=== PATIENT | male | born 1930 | race Caucasian/White ===

== ENCOUNTER 2017-01-20 12:02 | Emergency (ER) | payer OTHER ==
--- NOTE | 2017-01-20 12:48 | EDPHY ---
H & P Stated Complaint: Home nurse concerned with low heart rate. BP was stable. Time Seen by Provider: 01/20/17 12:38 HPI/ROS: CHIEF COMPLAINT: Hypotension HISTORY OF PRESENT ILLNESS: The patient is an 86-year-old man who comes to the emergency department referred by his home health nurse. He states that his home health nurse came to refill his medications today and took his blood pressure and noticed that the systolic reading was 60 mm of mercury. She told him to come to the hospital. He states that he has been asymptomatic. He denies lightheadedness or dizziness. He denies chest pain or shortness of breath. He denies nausea, vomiting, abdominal pain, diarrhea diaphoresis. He thinks that her blood pressure instrument was faulty. REVIEW OF SYSTEMS: Constitutional: denies: chills, fever, recent illness, recent injury EENTM: denies: blurred vision, double vision, nose congestion Respiratory: denies: cough, shortness of breath Cardiac: denies: chest pain, irregular heart rate, lightheadedness, palpitations Gastrointestinal/Abdominal: denies: abdominal pain, diarrhea, nausea, vomiting, blood streaked stools Genitourinary: denies: dysuria, frequency, hematuria, pain Musculoskeletal: denies: joint pain, muscle pain Skin: denies: lesions, rash, jaundice, bruising Neurological: denies: headache, numbness, paresthesia, tingling, dizziness, weakness Hematologic/Lymphatic: denies: blood clots, easy bleeding, easy bruising Immunologic/allergic: denies: HIV/AIDS, transplant EXAM: GENERAL: Well-appearing, well-nourished and in no acute distress. HEAD: Atraumatic, normocephalic. EYES: Pupils equal round and reactive to light, extraocular movements intact, sclera anicteric, conjunctiva are normal. ENT: TMs normal, nares patent, oropharynx clear without exudates. Moist mucous membranes. NECK: Normal range of motion, supple without lymphadenopathy or JVD. LUNGS: Breath sounds clear to auscultation bilaterally and equal. No wheezes rales or rhonchi. HEART: Regular rate and rhythm without murmurs, rubs or gallops. ABDOMEN: Soft, nontender, normoactive bowel sounds. No guarding, no rebound. No masses appreciated. BACK: No CVA tenderness, no spinal tenderness, step-offs or deformities EXTREMITIES: Normal range of motion, no pitting or edema. No clubbing or cyanosis. NEUROLOGICAL: Cranial nerves II through XII grossly intact. Normal speech, normal gait. 5/5 strength, normal movement in all extremities, normal sensation PSYCH: Normal mood, normal affect. SKIN: Warm, dry, normal turgor, no visible rashes or lesions. Source: Patient Exam Limitations: No limitations - Personal History Current Tetanus/Diphtheria Vaccine: Unsure Current Tetanus Diphtheria and Acellular Pertussis (TDAP): Unsure Tetanus Vaccine Date: DONE AT [facility] - Medical/Surgical History Hx Asthma: No Hx Chronic Respiratory Disease: No Hx Diabetes: No Hx Cardiac Disease: No Hx Renal Disease: No Hx Cirrhosis: No Hx Alcoholism: No Hx HIV/AIDS: No Hx Splenectomy or Spleen Trauma: No Other PMH: PMH- HYPOTHYROID, DEPRESSION, AGDAAGUX, LABILE BPH, ARTHRITIS, GLAUCOMA - Family History Significant Family History: No pertinent family hx - Social History Smoking Status: Light smoker Alcohol Use: Sober Drug Use: None Constitutional: Initial Vital Signs Temperature (C) 36.6 C 01/20/17 12:31 Heart Rate 59 L 01/20/17 12:31 Respiratory Rate 18 01/20/17 12:31 Blood Pressure 134/77 H 01/20/17 12:31 O2 Sat (%) 96 01/20/17 12:31 O2 Delivery Mode Room Air Allergies/Adverse Reactions: mold Allergy (Verified 01/20/17 12:34) Yeast Allergy (Verified 01/20/17 12:34) yeast, dried [yeast] Allergy (Verified 01/20/17 12:34) Home Medications: Medication Instructions Recorded Acetaminophen [Tylenol ES 500 mg 1,000 mg PO TID 10/06/15 (*)] Cholecalciferol Vit D3 [Vitamin D3 1,000 units PO DAILY 10/06/15 (*)] Cyanocobalamin [Vitamin B12 (*)] 1,000 mcg PO DAILY 10/06/15 Fluocinonide 0.05% [Lidex 0.05% 1 ines TP BID 10/06/15 Cream] Latanoprost 0.005% [Xalatan 0.005% 1 drops EACHEYE HS 10/06/15 (*)] Levothyroxine [Synthroid 25 mcg 100 mcg PO DAILY06 #31 tab 10/06/15 (*)] Lidocaine HCl [Lidocaine HCl 4% 1 ines TP DAILY 10/06/15 Topical Soln (*)] Lisinopril [Zestril 10 mg (*)] 10 mg PO BID 10/06/15 Naproxen 250 mg PO TID PRN 10/06/15 Sertraline HCl [Zoloft 100mg (*)] 100 mg PO DAILY 10/06/15 Tretinoin/Emol Cmb9/Skin Cln1 1 ines TP Q48H 10/06/15 [Tretin-X 0.025% Cream Comb Pck] Vanicream [Vanicream (*)] 1 ines TP BID 10/06/15 Aleve 08/26/16 Cyanocobalamin 08/26/16 Latanoprost 08/26/16 Levothyroxine 08/26/16 Nugenix 08/26/16 Sertraline HCl 08/26/16 Sildenafil Citrate 08/26/16 Triamterene 08/26/16 Medical Decision Making - Diagnostics EKG Interpretation: An EKG obtained and was read and documented in trace view. Please see trace view for full reading and report. ED Course/Re-evaluation: Patient is asymptomatic and has had stable vital signs since arriving here to the emergency department. I agree with him that the sphygmomanometer was likely faulty. I did not recommend any medication changes. He declines any workup. We will obtain an EKG. Differential Diagnosis: Partial list of the Differential diagnosis considered include but were not limited to; hypotension, anxiety, and although unlikely based on the history and physical exam, I also considered acute coronary disease, arrhythmia, infection, dissection, aneurysm. I discussed these differential diagnoses and the plan with the patient as well as the usual and expected course. The patient understands that the diagnosis is provisional and that in medicine we are not always correct and that further workup is often warranted. Usual and customary warnings were given. All of the patient's questions were answered. The patient was instructed to return to the emergency department should the symptoms at all worsen or return, otherwise to followup with the physician as we discussed. Departure - Departure Disposition: Home, Routine, Self-Care Clinical Impression: Blood pressure check Condition: Fair Instructions: How to Take a Blood Pressure (ED) Referrals: UNKNOWN,DOCTOR [Other] - As per Instructions Grant Feng MD [Medical Doctor] - As per Instructions
--- NOTE | 2017-01-20 12:49 | CPEKG ---
Heart Rate: 65 RR Interval: 923 P-R Interval: 252 QRSD Interval: 70 QT Interval: 404 QTC Interval: 421 P [place]: 8 QRS [place]: 20 T Wave [place]: 50 EKG Severity - ABNORMAL ECG - EKG Impression: SINUS RHYTHM EKG Impression: ATRIAL PREMATURE COMPLEX EKG Impression: FIRST DEGREE AV BLOCK EKG Impression: CONSIDER ANTEROSEPTAL INFARCT Electronically Signed By: Ra Domingo 20-Jan-2017 12:50:04
[2017-01-20 13:01] VITALS: BP 138/83; PULSE 64; RESP 16; TEMP 97.3; O2SAT 94
== END 2017-01-20 13:09 | disposition home or self-care (01) ==
DX: Z01.30 Encounter for examination of blood pressure without abnormal findings (principal); F17.200 Nicotine dependence, unspecified, uncomplicated

== ENCOUNTER 2017-03-19 15:26 | Inpatient (IN) | payer OTHER ==
--- NOTE | 2017-03-19 15:24 | EDPHY ---
H & P Constitutional: Initial Vital Signs Temperature (C) 37.0 C 03/19/17 15:37 Heart Rate 104 H 03/19/17 15:37 Respiratory Rate 18 03/19/17 15:37 Blood Pressure 200/113 H 03/19/17 15:37 O2 Sat (%) 93 03/19/17 15:37 O2 Delivery Mode Nasal Cannula O2 (L/minute) 2 Allergies/Adverse Reactions: mold Allergy (Verified 01/20/17 12:34) Yeast Allergy (Verified 01/20/17 12:34) yeast, dried [yeast] Allergy (Verified 01/20/17 12:34) Home Medications: Medication Instructions Recorded Acetaminophen [Tylenol ES 500 mg 1,000 mg PO TID 10/06/15 (*)] Cholecalciferol Vit D3 [Vitamin D3 1,000 units PO DAILY 10/06/15 (*)] Cyanocobalamin [Vitamin B12 (*)] 1,000 mcg PO DAILY 10/06/15 Fluocinonide 0.05% [Lidex 0.05% 1 ines TP BID 10/06/15 Cream] Latanoprost 0.005% [Xalatan 0.005% 1 drops EACHEYE HS 10/06/15 (*)] Levothyroxine [Synthroid 25 mcg 100 mcg PO DAILY06 #31 tab 10/06/15 (*)] Lidocaine HCl [Lidocaine HCl 4% 1 ines TP DAILY 10/06/15 Topical Soln (*)] Lisinopril [Zestril 10 mg (*)] 10 mg PO BID 10/06/15 Naproxen 250 mg PO TID PRN 10/06/15 Sertraline HCl [Zoloft 100mg (*)] 100 mg PO DAILY 10/06/15 Tretinoin/Emol Cmb9/Skin Cln1 1 ines TP Q48H 10/06/15 [Tretin-X 0.025% Cream Comb Pck] Vanicream [Vanicream (*)] 1 ines TP BID 10/06/15 Aleve 08/26/16 Cyanocobalamin 08/26/16 Latanoprost 08/26/16 Levothyroxine 08/26/16 Nugenix 08/26/16 Sertraline HCl 08/26/16 Sildenafil Citrate 08/26/16 Triamterene 08/26/16 Medical Decision Making - Diagnostics Imaging Results: Imaging Impressions Head CTA 03/19/17 16:29 Impression: Negative CT angiogram of the brain. Results called and discussed with Paul Godwin MD at 03/19/2017 17:10. Imaging: Discussed imaging studies w/ [employer] architect Radiologist ED Course/Re-evaluation: CHIEF COMPLAINT: Possible seizure HISTORY OF PRESENT ILLNESS: This patient is a non-anticoagulated 86 year old male arriving via EMS following a witnessed possible seizure onset 30 minutes ago, around 15:00. Per EMS report, the patient was sitting with friends outside when he began to have tonic-clonic type movements for about thirty seconds. Upon arrival, crews state he seemed to be post-ictal, with frothy secretions around his mouth, alert and oriented x 1. Vitals in transport were BP 200/113, HR 104, SpO2 93%. REVIEW OF SYSTEMS: A 10 point review of systems was performed and is negative with the exception of the elements mentioned in the history of present illness. PHYSICAL EXAM: Aortic stenosis murmur. systolic injection murmur HR, BP, O2 Sat, RR. Temp noted General Appearance: Alert, well hydrated, appropriate, and non-toxic appearing. Head: Atraumatic without scalp tenderness or obvious injury Eyes: Pupils equal, round, reactive to light and accommodation, EOMI, no trauma , no injection. Ears: Clear bilaterally, no perforation, normal landmarks Nose: Atraumatic, no rhinorrhea, clear. Throat: There is no erythema or exudates, no lesions, normal tonsils, mucus membranes moist. Neck: Supple, 2+ carotid upstroke, nontender, no lymphadenopathy. Respiratory: No retractions, no distress, no wheezes, and no accessory muscle use. Lungs are clear to auscultation bilaterally. Cardiovascular: Aortic murmur. Regular rate and rhythm, rubs, or gallops. Bilateral carotid, radial, dorsalis pedis, and posterior tibial pulses intact. Good capillary refill all extremities. Gastrointestinal: Abdomen is soft, nontender, non-distended, no masses, no rebound, no guarding, no peritoneal signs. Musculoskeletal: Normal active ROM of all extremities, atraumatic. Neurological: Alert, appropriate, and interactive. The patient has normal DTRs and non-focal cranial nerves, motor, sensory, and cerebellar exam. Skin: No rashes, good turgor, no nodules on palpation. Past medical/surgical history: Hypothyroid, depression, BPH, arthritis, glaucoma Family history: Noncontributory Social history: Lives at [facility]. DIAGNOSTICS/PROCEDURES/CRITICAL CARE TIME: Critical care time spent by me, Dr. Godwin, exclusively with this patient was [ ] minutes, exclusive of PA time and exclusive of procedures. The organ system at risk was [] and I [] to prevent worsening of the patients condition. DIFFERENTIAL DIAGNOSIS: The differential diagnosis for the patient's syncope included but was not limited to vasovagal syncope, arrhythmia, dehydration, cardiogenic causes, neurogenic causes, and blood loss. The differential diagnosis for the patient's seizure included but was not limited to electrolyte abnormality, alcohol withdrawal, medication noncompliance , head injury, [employer] structural abnormality, and break through seizure. MEDICAL DECISION MAKIN:28 Met EMS at bedside. Does not appear to be infectious of febrile. Sepsis / meningitis criteria not met. Plan for CT head with and without contrast to evaluate for acute processes. 15:48 Patient has developed left sided facial droop, slurred speech. Called stroke alert. 16:24 Bleed in left frontal lobe, subarachnoid. Patient denies fall. Non anticoagulated. Plan to administer 1gm IV Keppra 16:25 Telemedicine conference with [facility]. []. 16:[address] Fan, neurosurgeon. Plan for CTA head. Patient continues to be hypertensive, plan for labetalol 17:[address] Schumacher, radiologist. CTA negative. 17:[address] Fan, neurosurgeon. Plan to admit to ICU. Dr. Fan will consult. She recommends consult with neurology as well. 17:[address] Malone, hospitalist. Accepts admission for continued management of seizure, stroke, intracranial hemorrhage. Reassessed patient. Continues to mentate well. No peripheral deficits. - Data Points Laboratory Results: Laboratory Results 03/19/17 15:30 03/19/17 15:30 03/19/17 03/19/17 03/19/17 16:25 15:32 15:30 WBC RBC Hgb POC Hgb 17.0 gm/dL gm/dL (13.7-17.5) Hct POC Hct 50 % % (40-51) MCV MCH MCHC RDW Plt Count MPV Neut % (Auto) Lymph % (Auto) Bennett % (Auto) Eos % (Auto) Baso % (Auto) Nucleat RBC Rel Count Absolute Neuts (auto) Absolute Lymphs (auto) Absolute Monos (auto) Absolute Eos (auto) Absolute Basos (auto) Absolute Nucleated RBC Immature Gran % Immature Gran # PT 14.1 SEC SEC (12.0-15.0) INR 1.10 (0.83-1.16) APTT 28.6 SEC SEC (23.0-38.0) POC Sodium 144 mEq/L mEq/L (134-144) Sodium 147 mEq/L H mEq/L (134-144) POC Potassium 3.4 mEq/L mEq/L (3.3-5.0) Potassium 3.6 mEq/L mEq/L (3.5-5.2) POC Chloride 103 mEq/L mEq/L (97-110) Chloride 107 mEq/L mEq/L (97-110) Carbon Dioxide 13 mEq/l L mEq/l (22-31) Anion Gap 27 mEq/L H mEq/L (8-16) POC BUN 8 mg/dL mg/dL (7-23) BUN 9 mg/dL mg/dL (7-23) Creatinine 0.9 mg/dL mg/dL (0.7-1.3) POC Creatinine 0.6 mg/dL L mg/dL (0.7-1.3) Estimated GFR > 60 Glucose 176 mg/dL H mg/dL (70-100) POC Glucose 170 mg/dL H mg/dL (70-100) Calcium 9.3 mg/dL mg/dL (8.5-10.4) Troponin I < 0.012 ng/mL ng/mL (0-0.034) 03/19/17 15:30 WBC 9.77 10^3/uL H 10^3/uL (3.80-9.50) RBC 4.37 10^6/uL L 10^6/uL (4.40-6.38) Hgb 15.8 g/dL g/dL (13.7-17.5) POC Hgb Hct 46.4 % % (40.0-51.0) POC Hct MCV 106.2 fL H fL (81.5-99.8) MCH 36.2 pg H pg (27.9-34.1) MCHC 34.1 g/dL g/dL (32.4-36.7) RDW 12.2 % % (11.5-15.2) Plt Count 162 10^3/uL 10^3/uL (150-400) MPV 10.4 fL fL (8.7-11.7) Neut % (Auto) 74.4 % H % (39.3-74.2) Lymph % (Auto) 17.8 % % (15.0-45.0) Bennett % (Auto) 5.5 % % (4.5-13.0) Eos % (Auto) 0.0 % L % (0.6-7.6) Baso % (Auto) 0.2 % L % (0.3-1.7) Nucleat RBC Rel Count 0.0 % % (0.0-0.2) Absolute Neuts (auto) 7.26 10^3/uL H 10^3/uL (1.70-6.50) Absolute Lymphs (auto) 1.74 10^3/uL 10^3/uL (1.00-3.00) Absolute Monos (auto) 0.54 10^3/uL 10^3/uL (0.30-0.80) Absolute Eos (auto) 0.00 10^3/uL L 10^3/uL (0.03-0.40) Absolute Basos (auto) 0.02 10^3/uL 10^3/uL (0.02-0.10) Absolute Nucleated RBC 0.00 10^3/uL 10^3/uL (0-0.01) Immature Gran % 2.1 % H % (0.0-1.1) Immature Gran # 0.21 10^3/uL H 10^3/uL (0.00-0.10) PT INR APTT POC Sodium Sodium POC Potassium Potassium POC Chloride Chloride Carbon Dioxide Anion Gap POC BUN BUN Creatinine POC Creatinine Estimated GFR Glucose POC Glucose Calcium Troponin I Medications Given: Discontinued Medications Levetiracetam 1,000 mg/ Sodium (Chloride) 110 mls @ 440 mls/hr IV EDNOW ONE Stop: 03/19/17 16:38 Last Admin: 03/19/17 16:55 Dose: 110 mls Labetalol HCl (Labetalol Hcl) 20 mg IVP EDNOW ONE Stop: 03/19/17 16:37 Last Admin: 03/19/17 16:38 Dose: 20 mg Labetalol HCl (Labetalol Hcl) 20 mg IVP EDNOW ONE Stop: 03/19/17 17:02 Last Admin: 03/19/17 17:08 Dose: 20 mg Point of Care Test Results: 03/19/17 15:32 POC Sodium 144 POC Potassium 3.4 POC Chloride 103 POC BUN 8 POC Creatinine 0.6 L POC Glucose 170 H Departure - Departure Disposition: [facility] Inpatient Acute Clinical Impression: Seizure, Intracranial hemorrhage Stroke Qualifiers: CVA mechanism: other Qualified Code(s): I63.8 - Other cerebral infarction Condition: Fair Referrals: Patient,NotPresent [Primary Care Provider] - As per Instructions Report Scribed for: Paul Godwin Report Scribed by: Loulou Ribeiro Date of Report: 03/19/17 Time of Report: 17:03
--- NOTE | 2017-03-19 15:40 | CPEKG ---
Heart Rate: 96 RR Interval: 625 P-R Interval: 264 QRSD Interval: 68 QT Interval: 352 QTC Interval: 445 P [place]: 7 QRS [place]: 8 T Wave [place]: 0 EKG Severity - ABNORMAL ECG - EKG Impression: SINUS RHYTHM EKG Impression: FIRST DEGREE AV BLOCK EKG Impression: BORDERLINE T WAVE ABNORMALITIES Electronically Signed By: Paul Godwin 19-Mar-2017 20:57:19
[2017-03-19 15:51] LABS: % IMMATURE GRANULYOCYTES 2.1 % (0.0-1.1); ABSOLUTE IMMATURE GRANULOCYTES 0.21 10^3/uL (0.00-0.10); ADD DIFF? NO; ADD MORPH? NO; ADD SCAN? NO; ATYPICAL LYMPHOCYTE FLAG 0 (0-99); FRAGMENT RBC FLAG 0 (0-99); HEMATOCRIT 46.4 % (40.0-51.0); HEMOGLOBIN 15.8 g/dL (13.7-17.5); LEFT SHIFT FLG 10 (0-99); LIPEMIA HEMOLYSIS FLAG 90 (0-99); MEAN CELL HEMOGLOBIN 36.2 pg (27.9-34.1); MEAN CELL HEMOGLOBIN CONCENTR. 34.1 g/dL (32.4-36.7); MEAN CELL VOLUME 106.2 fL (81.5-99.8); MEAN PLATELET VOLUME 10.4 fL (8.7-11.7); PLATELET CLUMPS FLAG 0 (0-99); PLATELET COUNT 162 10^3/uL (150-400); RED BLOOD CELL COUNT 4.37 10^6/uL (4.40-6.38); RED CELL DISTRIBUTION WIDTH 12.2 % (11.5-15.2)
[2017-03-19 16:04] LABS: ANION GAP 27 mEq/L (8-16); CALCIUM 9.3 mg/dL (8.5-10.4); CARBON DIOXIDE 13 mEq/l (22-31); CHLORIDE 107 mEq/L (97-110); CREATININE 0.9 mg/dL (0.7-1.3); GLOMERULAR FILTRATION RATE > 60; GLUCOSE 176 mg/dL (70-100); POTASSIUM 3.6 mEq/L (3.5-5.2); SODIUM 147 mEq/L (134-144)
[2017-03-19 16:15] LABS: TROPONIN I < 0.012 ng/mL (0-0.034)
[2017-03-19] MEDS ORDERED: levETIRAcetam 1,000 MG in NS 100 ML IV ONE (16:24)
[2017-03-19] MEDS ORDERED: LABETALOL HCL 5 MG/ML 20 ML MDV ONE (16:30)
[2017-03-19] MEDS ORDERED: IOPAMIDOL (ISOVUE 370) 100 ML BTL IV ONE (16:31)
[2017-03-19] MEDS ORDERED: LABETALOL HCL 50 MG/10 ML SYR IVP ONE ×2 (16:36→17:01)
[2017-03-19 16:59] LABS: INR 1.1 (0.83-1.16); PROTIME(PATIENT) 14.1 SEC (12.0-15.0)
[2017-03-19 17:06] LABS: APTT 28.6 SEC (23.0-38.0)
--- NOTE | 2017-03-19 19:30 | GHP ---
[f rep st] HISTORY AND PHYSICAL DATE OF ADMISSION: 03/19/2017 CHIEF COMPLAINT: Suspected seizure. HISTORY OF PRESENT ILLNESS: This is an 86-year-old male with history of depression, hypertension, Meniere's disease, and hypothyroidism who was brought to the emergency department as a stroke alert after he was witnessed to have what was thought to be a seizure. During the time of my exam, the patient has no recollection of what happened prior to waking up in the emergency department. He does not recall how he got to the hospital. His episode happened around 1500 today, per ER report. The patient denies any history of seizure. Per EMS report, he did appear to be postictal after the episode where he was alert and oriented x1 and had frothy secretions around his mouth. While being transported to the ED emergency department, his systolic blood pressure was as high as 200 with a diastolic of 113. PAST MEDICAL HISTORY: 1. Hypothyroidism. 2. Depression. 3. Arthritis. 4. Glaucoma. 5. Hypertension. 6. Meniere's disease. HOME MEDICATIONS: Reviewed. Refer to [facility] for details. ALLERGIES: No known drug allergies. SOCIAL HISTORY: He is since 2000. He resides at [facility]. He smokes a pipe. REVIEW OF SYSTEMS: Comprehensive 10-point review of systems was done and is negative except for what was mentioned in the HPI and below. NEUROLOGIC: He denies any numbness or weakness now. Denies any headache. CONSTITUTIONAL: He states he has been in his usual state of health up until the episode today. PHYSICAL EXAM: VITAL SIGNS: Blood pressure 165/81, pulse is 67, respiratory rate 15, O2 saturation 100% on 2 L. Temperature: Afebrile. GENERAL: No acute distress. HEAD: Normocephalic, atraumatic. EYES: PERRLA. NECK: Supple. No lymphadenopathy. CARDIOVASCULAR: S1, S2. No JVD. No lower extremity edema. PULMONARY: Lungs are clear. No wheezes, rales, or rhonchi. ABDOMEN: Soft, nontender, nondistended. No guarding or rebound tenderness. Normoactive bowel sounds. EXTREMITIES: No clubbing or cyanosis. NEURO: Cranial nerves 2-12 grossly intact. There are no focal motor or sensory deficits. There is no pronator drift. DTRs are symmetric at the patella. There is no clonus. Moves all extremities without any muscle weakness. SKIN: Clear. No rashes. DIAGNOSTICS: WBCs 9.7, hemoglobin 15.8, hematocrit 46.4, platelets 162. Sodium 147, potassium 3.6, chloride 107, CO2 13, BUN 9, creatinine 0.9, glucose 176. Head CT, which I reviewed, shows a left frontal lobe acute traumatic subarachnoid hemorrhage with bilateral anterior inferior medial frontal lobe acute hemorrhagic cortical contusions without midline shift, hydrocephalus, or herniation. CT angio of the head was negative. ASSESSMENT AND PLAN: This is an 86-year-old male, presented to the emergency department with: 1. Suspected generalized seizure, 1st episode, unclear precipitant. 2. Suspected traumatic subarachnoid hemorrhage with bilateral anterior inferior mesial frontal lobe acute hemorrhagic cortical contusions. 3. Anion gap metabolic acidosis, most likely due to seizure. 4. History of hypertension in the setting of SAH PLAN: 1. Admit to ICU with close neuro monitoring. 2. Discussed the case with Dr. Fan from neurosurgery who is recommending observation care and repeat imaging in the morning. 3. Will obtain LFTs and will ask for a neurology consultation in the morning. Will continue Keppra that was started in the emergency department. 4. The patient will be admitted to the hospital under inpatient status given the severity of his condition and injury. 5. Goal SBP<160 will start IV Cardene if needed to maintain SBP<160 DVT-P Lovenox contraindicated in light of SAH SCDs while in bed Inpatient status. High Risk needs close ICU monitoring /[id number]/MODL MTDD
--- NOTE | 2017-03-19 20:19 | GCON ---
[f rep st] CONSULTATION NEUROSURGICAL CONSULTATION DATE OF CONSULTATION: 03/19/2017 LOCATION: ICU. CHIEF COMPLAINT: Seizure. HISTORY OF PRESENT ILLNESS: This is an 86-year-old male, who was in his usual health, who lives at a nursing facility. He was out walking with his walker. Had a witnessed generalized tonic-clonic s eizure lasting approximately 30 seconds with a postictal state. On 911's arrival, he has also had s ome frothing of the mouth. He is amnestic to the event. He was brought to the Emergency Department where he cleared, and then while he was in the Emergency Department developed develop some facial d amber. CT of the head revealed some intracranial hemorrhage, and he was admitted for observation and Neurology consult. He at this point in time is oriented to person, place, and day of the week, but not month or year. He denies any headache, nausea, vomiting, numbness, tingling or weakness. He s tates he did not bite his tongue and he did not lose control of his bowel or bladder. He denies any pain in his neck, his back, or any other extremities. PAST MEDICAL HISTORY: Positive for hypothyroid, hypertension, depression, BPH, arthritis, and glauc sweetie. PAST SURGICAL HISTORY: He denies any surgery. FAMILY HISTORY: Denies any history of seizures, tumors, other hypercoagulability, and is otherwise noncontributory. SOCIAL HISTORY: He lives at [facility]. He does smoke a pipe. He denies any alcohol. He . ALLERGIES: Mold and yeast. MEDICATIONS: Home medications include: 1. Tylenol. 2. Vitamin D3. 3. Vitamin B12. 4. Lidex cream. 5. Xalatan. 6. Synthroid. 7. Lidocaine. 8. Zestril. 9. Naproxen. 10. Zoloft. 11. Trentin-X 0.025% cream. 12. Vanicream number Aleve. 13. Cyanocobalamin. 14. Latanoprost. 15. Levothyroxine. 16. . 17. Sertraline. 18. Sildenafil. 19. Triamterene. REVIEW OF SYSTEMS: A complete 10-system review of systems performed by myself was negative except a s stated above. PHYSICAL EXAMINATION: VITAL SIGNS: Blood pressure is 165/81, heart rate is 67, respiratory rate is 15, saturating 100% on room air, temperature is 36.6 degrees Celsius. GENERAL: He is alert and or iented to person, place, day of the week, not month or year. HEENT: Pupils are equal, round, react adela to light and accommodation. External ocular muscles are intact. There is no facial asymmetry o r tongue deviation. NEUROLOGIC: Sensation is intact V1, V2, V3 distributions bilaterall y. Strength is 5/5 to bilateral deltoids, biceps, triceps, wrist flexors, wrist extensors, hand int rinsics, iliopsoas, quadriceps, hamstrings, dorsiflexors, plantarflexors, EHLs. DTRs are +2/4 in bi ceps, brachioradialis, patellar and Achilles. There is no Redd's, no clonus, and no drift. LABORATORY DATA: White blood cell count is 9.77, hemoglobin 15.8, hematocrit 46.4, platelets are 16 2. PT is 14.1, INR is 1.1, PTT is 28.6. Sodium is 144, potassium 3.4, chloride 103, CO2 13, BUN 8, creatinine 0.6, glucose 170. Troponin less than 0.012 IMAGING: Head CT reveals in left frontal lobe small areas of acute subarachnoid hemorrhage, bilater al anterior-inferior mesial frontal lobe intraparenchymal hemorrhage, cortical contusions left great er than right, measuring 2.5 x 1.5 cm. In the left frontal lobe anterior-inferior mesial aspect, th ere is an area of decreased density measuring 2.5 x 2 cm. Image 20 of series 2, which may represent cytotoxic edema: Subacute infarct or vasogenic edema, moderate diffuse atrophy, moderate microvasc ular ischemic gliosis in the white matter, no hydrocephalus or midline shift, no herniation, no evid ence of skull fracture, paranasal sinuses and mastoid air cells appear clear, no epidural or subdura l hematoma. IMPRESSION AND PLAN: This is an 86-year-old male with a new onset seizure, who has a small amount o f traumatic subarachnoid hemorrhage, and is relatively neurologically intact, although he is slightl y confused to the month and day. At this point in time, he will be admitted to the ICU step-down fo r observation for a Neurology consult. He was loaded with [employer]. Would perform q.2 hour neuro batsheva cks. Repeat head CT in the a.m. Please call with any changes in neurologic status. /[id number]/MODL
[2017-03-19] MEDS ORDERED: niCARdipine/NACL 200 ML IV SCH (20:30)
[2017-03-19 20:31] LABS: ALBUMIN 3.8 g/dL (3.5-5.0); BILIRUBIN,TOTAL 1.2 mg/dL (0.1-1.4); BILIRUBIN-CONJUGATED 0.4 mg/dL (0.0-0.5); BILIRUBIN-UNCONJUGATED 0.8 mg/dL (0.0-1.1); TOTAL PROTEIN 6.4 g/dL (6.3-8.2)
[2017-03-19] MEDS: levETIRAcetam 500 MG TAB PO SCH (21:31)
[2017-03-20 05:58] LABS: % IMMATURE GRANULYOCYTES 0.4 % (0.0-1.1); ABSOLUTE IMMATURE GRANULOCYTES 0.03 10^3/uL (0.00-0.10); ADD DIFF? NO; ADD MORPH? NO; ADD SCAN? NO; ATYPICAL LYMPHOCYTE FLAG 10 (0-99); FRAGMENT RBC FLAG 0 (0-99); HEMATOCRIT 34.3 % (40.0-51.0); LEFT SHIFT FLG 0 (0-99); LIPEMIA HEMOLYSIS FLAG 90 (0-99); MEAN CELL HEMOGLOBIN 36.6 pg (27.9-34.1); MEAN CELL VOLUME 104.6 fL (81.5-99.8); MEAN PLATELET VOLUME 10.3 fL (8.7-11.7); PLATELET CLUMPS FLAG 0 (0-99); PLATELET COUNT 112 10^3/uL (150-400); RED BLOOD CELL COUNT 3.28 10^6/uL (4.40-6.38)
[2017-03-20 06:16] LABS: ANION GAP 6 mEq/L (8-16); CALCIUM 8.6 mg/dL (8.5-10.4); CARBON DIOXIDE 25 mEq/l (22-31); CHLORIDE 105 mEq/L (97-110); CREATININE 0.7 mg/dL (0.7-1.3); GLOMERULAR FILTRATION RATE > 60; GLUCOSE 94 mg/dL (70-100); POTASSIUM 3.3 mEq/L (3.5-5.2); SODIUM 136 mEq/L (134-144)
[2017-03-20] MEDS: levETIRAcetam 500 MG TAB PO SCH ×2 (08:24→19:53)
--- NOTE | 2017-03-20 09:41 | GCON ---
[f rep st] CONSULTATION NEUROLOGIC CONSULTATION REFERRING PHYSICIAN: Nae Fan DO HISTORY: The patient is an 86-year-old gentleman, who I am asked to see in neurologic consultation for new onset seizure. The patient was originally seen in the emergency department yesterday aftern oon, around 3:30 p.m. He came via rescue squad, when he had a witnessed suspected seizure, 30 minut es prior to arrival in the emergency department at 1500. He was apparently sitting with friends and started to have a tonic clonic type seizure, lasting about 30 seconds. The rescue squad felt he wa s postictal when they saw him, and had secretions around his mouth, and was oriented x1. Blood pres sure was 200/113, heart rate was 104, oxygen saturation 93%. In the emergency department, he was al ert and appropriate, and acting, and Dr. Godwin did not see any focal findings on the ex am. He had a head CT obtained, which showed some small amount of subarachnoid bleeding and left fro ntal contusion with hemorrhage. He was loaded with IV Keppra, and neurosurgery was involved and rec ommended monitoring in the ICU, with neurologic consultation. Hospitalist has also seen the patient . I am seeing the patient this morning, about 8:30 a.m., and he says he has no memory for what happene d. He knows he lives in some apartments, but he can't remember the name of the place. He is not aw are of ever having a seizure before. He is asked me why this may have occurred. He denies headache , or focal numbness, or weakness. He is simply confused as to why this had happened, but is able to otherwise communicate effectively and tell me issues related to his past. PAST MEDICAL HISTORY: Notable for hypothyroidism, depression, glaucoma, hypertension, Meniere syndr ome. SOCIAL HISTORY: His about 7 or 8 years ago apparently, and he lives at [facility]. Smokes a pipe. No alcohol abuse. MEDICATIONS: Prior to admission, Tylenol, calcium, B12, levothyroxine, naproxen, Zoloft, triamteren e. ALLERGIES: Mold and yeast. No apparent drug allergies. REVIEW OF SYSTEMS: Negative for chest pain, palpitations, or shortness of breath. PHYSICAL EXAM: VITAL SIGNS: Blood pressure 123/62, pulse of 54, respirations 16, temperature 36.6. GENERAL: He is well developed, in no acute distress. EYES: Clear. NECK: Supple with no bruits or masses. NEURO: He is awake, alert and attentive. He is oriented to the year, and the city, an d his name, but cannot remember the place he lives. He cannot remember any of the details about wha t occurred that caused this hospitalization. He estimated the month was January. He can follow instruc tions and has fluent language with decreased concentration and attention. The general [facility] is fairly well preserved. Pupils 3 mm and reactive. Extraocular movements intact. Normal fac ial sensation and strength. Palate elevates symmetrically. Tongue protrudes midline. Motor exam, normal muscle bulk and tone with 5/5 strength. Sensation is preserved for temperature and light cleo ch. Reflexes 1+. I reviewed all of his laboratory studies and head CT. I agree that there is evidence of small amoun t of subarachnoid blood, and his repeat head CT today looks stable with some left frontal contusions , a small amount of hemorrhage with no mass effect. IMPRESSION: The patient most likely did experience a generalized tonic-clonic seizure, although the exact cause is not clear. He had subsequent changes on the head CT, consistent with contusion and hemorrhage, and probably posttraumatic subarachnoid bleeding, rather than a primary intracranial hem orrhage or ischemic stroke. The patient has already been loaded with Keppra and is on 500 mg b.i.d., which should be continued i ndefinitely. We will follow up on his case tomorrow to make sure he is stable, and he will go throu gh rehab processes until he is stable and disposition can be made, to whether he can return to indep endent living or not, but may need a rehab stay. /[id number]/MODL
--- NOTE | 2017-03-20 10:10 | HOSPPROG ---
Hospitalist Progress Note Assessment/Plan: DIAGNOSES: -suspected generalized tonic-clonic seizure with postictal state and metabolic acidosis -traumatic subarachnoid hemorrhage to the frontal lobes -memory deficit, uncertain chronicity of this; ? dementia vs related to injury and sz -hypertension at the time of admission has resolved -mild macrocytic anemia -hypokalemia It is concerning that he can not recall where he lives, and that his son has taken his car away. I suspect he has some dementia. However, if the memory issue is new from trauma or sz, we will have to assess the safety of him staying in independent living apartment by himself. Will check labs for treatable dementia causes. Cog eval from [employer]: -continue Keppra indefinitely -will need to clarify with family what baseline mentation is -K replacement -sz precautions -therapies -Cog eval -check TSH, RPR, B12 level seen on multidisc ICU rounds reviewed with Dr Plummer and Dr Rich SUBJECTIVE: feels better with no headache or neck pain "Where do I live?" (states he moved about a year ago and lives in a house but can recall where it is; the address listed in chart would seem to indicate he lives in an apartment at [facility]; does state his son took his car away from him recently) OBJECTIVE Vitals reviewed: Stable overall without fever, pulses in the 50s Informaticist, my review: Exam: alert oriented skin warm dry color ok resps not labored lungs clear BSs heart regular abd soft nondistended nontender, bowel sounds present limbs warm, no edema iv site ok I reviewed the images of yesterday CT scan and today's repeat CT scan of the head, there is no further bleeding in fact evidence of slightly less fluid. There is still some edema around the areas of hemorrhage but this is not changed since yesterday and there is no shift. Objective: Vital Signs Temp Pulse Resp BP Pulse Ox 36.6 C 54 L 16 123/62 H 96 03/20/17 08:00 03/20/17 08:00 03/20/17 08:00 03/20/17 08:00 03/20/17 08:00 Laboratory Results 03/20/17 05:44 03/20/17 05:44 03/19/17 03/20/17 03/21/17 06:59 06:59 06:59 Intake Total 1885 Output Total 950 Balance 935 PT 14.1 SEC (12.0-15.0) 03/19/17 16:25 INR 1.10 (0.83-1.16) 03/19/17 16:25 - Time Spent With Patient Time Spent with Patient: greater than 35 minutes Time Spent with Patient: Greater than 35 minutes spent on this patients care, greater than 50% of time spent counseling, educating, and coordinating care regarding the above mentioned plan. ICD10 Worksheet Patient Problems: Problems Problem Status Onset Intracranial hemorrhage Acute Seizure Acute Stroke Acute Altered mental state Acute Confused but orients easily Acute
[2017-03-20] MEDS ORDERED: PROTOCOL POTASSIUM 1 DOSE MISC PRN (10:45)
[2017-03-20] MEDS ORDERED: POTASSIUM CL 10 MEQ TAB PO ONE (11:32)
[2017-03-20] MEDS ORDERED: POTASSIUM CL 20 MEQ/15 ML UDCUP TUBE ONE (12:15)
--- NOTE | 2017-03-20 16:56 | NEUSURGPN ---
Assessment/Plan: 86 yo male with witnessed seizure, bifrontal tsah and contusions. -Repeat Head CT this am shows stable tsah, left frontal evolving contusions -Neurology consulted for seizure workup -Neuro- stable this am. No headaches, alert and oriented X3, denies nausea/ vision/visual complaints -No repeat scan unless declines -Patient discussed with Dr. Fan -NS Will continue to follow -Seizure medication/workup per neurology S: Patient sitting up in chair. Denies headache, nausea, vomiting, vision changes. My have felt uneasy when getting up from bed to chair. Does not recall events of yesterday. O: Alert and oriented to person, place, situation, month PERRL, EOMI Speech fluent no droop BUE/BLE 5/5= Sensation intact to lt touch - Physician Discussed Patient with : Meng Neurosurgery Physical Exam - Vitals, I&O, Labs I and O 03/19/17 03/20/17 03/21/17 05:59 05:59 05:59 Intake Total 1885 Output Total 950 Balance 935 Weight 76.9 kg 76.9 kg Intake: Oral (ml) 1700 IV Infused (ml) 185 niCARdipine/NACL 200 ml @ 35 Titrate IV CONT DOMENICA Rx#: [id number] Output: Urine (ml) 950 Urinal 750 Other: Number of Voids 1 Vital Signs Temp Pulse Resp BP Pulse Ox 36.6 C 58 L 17 164/83 H 97 03/20/17 16:00 03/20/17 16:00 03/20/17 16:00 03/20/17 16:00 03/20/17 16:00 Laboratory Results 03/20/17 05:44 03/20/17 05:44 ICD10 Worksheet Patient Problems: Problems Problem Status Onset Intracranial hemorrhage Acute Seizure Acute Stroke Acute Altered mental state Acute Confused but orients easily Acute
[2017-03-20 18:22] LABS: POTASSIUM 4.5 mEq/L (3.5-5.2)
[2017-03-20] MEDS ORDERED: hydrALAZINE 20 MG/ML VIAL IVP ONE (20:47)
[2017-03-20] MEDS: LATANOPROST 0.005% 2.5 ML OPHT DROPS EACHEYE SCH (20:59)
[2017-03-21] MEDS ORDERED: hydrALAZINE 20 MG/ML VIAL IVP ONE (01:00)
[2017-03-21 05:14] LABS: ALANINE AMINOTRANSFERASE 28 IU/L (21-72); ALBUMIN 3.7 g/dL (3.5-5.0); ALKALINE PHOSPHATASE 60 IU/L (38-126); ANION GAP 10 mEq/L (8-16); ASPARTATE AMINOTRANSFERASE 23 IU/L (17-59); BILIRUBIN,TOTAL 1.7 mg/dL (0.1-1.4); BILIRUBIN-CONJUGATED 0.2 mg/dL (0.0-0.5); BILIRUBIN-UNCONJUGATED 1.5 mg/dL (0.0-1.1); CALCIUM 8.7 mg/dL (8.5-10.4); CARBON DIOXIDE 22 mEq/l (22-31); CHLORIDE 104 mEq/L (97-110); CREATININE 0.6 mg/dL (0.7-1.3); GLOMERULAR FILTRATION RATE > 60; GLUCOSE 95 mg/dL (70-100); POTASSIUM 3.6 mEq/L (3.5-5.2); SODIUM 136 mEq/L (134-144); TOTAL PROTEIN 6.1 g/dL (6.3-8.2)
[2017-03-21] MEDS: LEVOTHYROXINE 25 MCG TAB PO SCH (05:26)
[2017-03-21] MEDS ORDERED: POTASSIUM CL 10 MEQ TAB PO ONE (07:52)
--- NOTE | 2017-03-21 09:39 | HOSPPROG ---
Hospitalist Progress Note Assessment/Plan: #Traumatic SAH: repeat CTH shows bilateral anteroinferior frontal lobe intracranial hemorrhage, stable -FU NSGY. No ASA #Generalized tonic-clonic seizure: cont Keppra. Appreciate Neuro consult. No driving for 3 months #Hypothyroidism: LT4 #Diet: regular #DVT ppx: ASA #Disp: rec rehab. Awaiting placement Subjective: no acute events Objective: Vital Signs Temp Pulse Resp BP Pulse Ox 36.7 C 60 15 168/90 H 96 03/21/17 07:59 03/21/17 07:59 03/21/17 07:59 03/21/17 07:59 03/21/17 07:59 Laboratory Results 03/20/17 05:44 03/21/17 04:36 03/20/17 03/21/17 03/22/17 05:59 05:59 05:59 Intake Total 1885 700 Output Total 950 Balance 935 700 PT 14.1 SEC (12.0-15.0) 03/19/17 16:25 INR 1.10 (0.83-1.16) 03/19/17 16:25 - Physical Exam Constitutional: no apparent distress Eyes: PERRL Ears, Nose, Mouth, Throat: moist mucous membranes Cardiovascular: regular rate and rhythym Respiratory: no respiratory distress Gastrointestinal: normoactive bowel sounds Genitourinary: no bladder fullness Skin: warm Musculoskeletal: full muscle strength Neurologic: AAOx3, CN II-XII Intact Psychiatric: interacting appropriately ICD10 Worksheet Patient Problems: Problems Problem Status Onset Intracranial hemorrhage Acute Seizure Acute Stroke Acute Altered mental state Acute Confused but orients easily Acute
[2017-03-21] MEDS: SERTRALINE HCL 100 MG TAB PO SCH (09:46)
[2017-03-21] MEDS: levETIRAcetam 500 MG TAB PO SCH ×2 (09:46→20:51)
[2017-03-21] MEDS: CYANO/VITAMIN B12 1000 MCG TAB PO SCH (09:46)
[2017-03-21] MEDS: CHOLECALCIFEROL VIT D3 1,000 UNITS TAB PO SCH (09:46)
[2017-03-21] MEDS: amLODIPine BESYLATE 5 MG TAB PO SCH (09:46)
--- NOTE | 2017-03-21 10:07 | NEUROPROG ---
Assessment: 1. 1st generalized seizure 2. Intracranial hemorrhage/contusion secondary to seizure and trauma 35 total minutes floor time; over 50% counseling regarding the patient's 1st seizure and secondary intracranial trauma. We discussed at great length. At his age, it is not unusual to have a 1st seizure in the setting of memory changes and microvascular changes. I reviewed all of his testing and imaging here f Recommendations: - Keppra 500 mg twice daily indefinitely. He has been again counseled on potential risks, benefits and alternatives of this medication including mood changes and depression. - indefinite seizure precautions and driving restrictions until follow-up with Dr. Rich, minimum 90 days - outpatient follow-up with Neurosurgery and Dr. Rich, neurology in about 1 month - he can be transferred now to inpatient rehabilitation or or the disposition recommended by therapies - he will have an a outpatient EEG No further recommendations. We will continue to follow up p.r.n.. Thank for this consultation Subjective: Doing well, has no memory of the seizure Objective: Vital Signs Temp Pulse Resp BP Pulse Ox 36.7 C 60 15 168/90 H 96 03/21/17 07:59 03/21/17 07:59 03/21/17 07:59 03/21/17 09:46 03/21/17 07:59 Laboratory Results 03/20/17 05:44 03/21/17 04:36 03/20/17 03/21/17 03/22/17 05:59 05:59 05:59 Intake Total 1885 700 Output Total 950 Balance 935 700 PT 14.1 SEC (12.0-15.0) 03/19/17 16:25 INR 1.10 (0.83-1.16) 03/19/17 16:25 Awake and alert No convulsive activity Allergies/Adverse Reactions: mold Allergy (Verified 01/20/17 12:34) Yeast Allergy (Verified 01/20/17 12:34) yeast, dried [yeast] Allergy (Verified 01/20/17 12:34)
[2017-03-21 16:01] VITALS: RESP 16
[2017-03-21 18:42] LABS: POTASSIUM 4.1 mEq/L (3.5-5.2)
[2017-03-21] MEDS: LATANOPROST 0.005% 2.5 ML OPHT DROPS EACHEYE SCH (20:51)
[2017-03-21] MEDS: hydrALAZINE 20 MG/ML VIAL IVP PRN (21:55)
[2017-03-22] MEDS: hydrALAZINE 20 MG/ML VIAL IVP PRN (03:05)
[2017-03-22 05:32] LABS: POTASSIUM 3.8 mEq/L (3.5-5.2)
[2017-03-22] MEDS: LEVOTHYROXINE 25 MCG TAB PO SCH (05:38)
[2017-03-22] MEDS ORDERED: POTASSIUM CL 10 MEQ TAB PO ONE (07:50)
[2017-03-22 08:16] VITALS: BP 149/80; PULSE 69; TEMP 97.6; O2SAT 97
[2017-03-22] MEDS: amLODIPine BESYLATE 5 MG TAB PO SCH (09:13)
[2017-03-22] MEDS: CHOLECALCIFEROL VIT D3 1,000 UNITS TAB PO SCH (09:13)
[2017-03-22] MEDS: SERTRALINE HCL 100 MG TAB PO SCH (09:13)
[2017-03-22] MEDS: levETIRAcetam 500 MG TAB PO SCH (09:13)
[2017-03-22] MEDS: CYANO/VITAMIN B12 1000 MCG TAB PO SCH (09:13)
--- NOTE | 2017-03-22 10:27 | PDIAF ---
- Diagnosis Diagnosis: seizure, SAH Code Status: Full Code - Medication Management Discharge Medications: Medications to Continue on Transfer Acetaminophen [Tylenol ES 500 mg (*)] 500 mg PO Q4 PRN 10/06/15 [Last Taken Unknown] Cholecalciferol Vit D3 [Vitamin D3 (*)] 1,000 units PO DAILY 10/06/15 [Last Taken Unknown] Cyanocobalamin [Vitamin B12 (*)] 1,000 mcg PO DAILY 10/06/15 [Last Taken Unknown ] Latanoprost 0.005% [Xalatan 0.005% (*)] 1 drops EACHEYE HS 10/06/15 [Last Taken Unknown] Levothyroxine [Synthroid 25 mcg (*)] 100 mcg PO DAILY06 #31 tab 10/06/15 [Last Taken Unknown] Sertraline HCl [Zoloft 100mg (*)] 100 mg PO DAILY 10/06/15 [Last Taken Unknown] amLODIPine BESYLATE [Norvasc 5 mg (*)] 5 mg PO DAILY tab 03/21/17 [Last Taken Unknown] levETIRAcetam [Keppra 500 mg (*)] 500 mg PO BID tab 03/21/17 [Last Taken Unknown] Discharge Medications: Refer to the Discharge Home Medication list for PRN reason. - Orders Services needed: Registered Nurse, Master [employer] W[employer], Physical Therapy, Occupational Therapy, Speech Language Pathologist Diet Recommendation: no restrictions on diet Diet Texture: Regular Texture Diet - Follow Up Care Current Providers and Referrals: Nae Fan DO [Doctor of Osteopathy] - Patient,NotPresent [Primary Care Provider] - As per Instructions Bharath Rich MD [Medical Doctor] - (1 month)
--- NOTE | 2017-03-22 14:19 | HOSPPROG ---
Hospitalist Progress Note Assessment/Plan: #Traumatic SAH: repeat CTH shows bilateral anteroinferior frontal lobe intracranial hemorrhage, stable -FU NSGY. No ASA #Cognitive deficit: unclear of chronicity. SAH contributing. No metabolic derangements. RPR pending #Generalized tonic-clonic seizure: cont Keppra. Appreciate Neuro consult. No driving for 3 months #Hypothyroidism: LT4 #Diet: regular #DVT ppx: ASA #Disp: DC today Subjective: denies RAYMOND, weakness Objective: Vital Signs Temp Pulse Resp BP Pulse Ox 36.4 C 69 16 149/80 H 97 03/22/17 08:00 03/22/17 08:00 03/22/17 08:00 03/22/17 09:13 03/22/17 08:00 Laboratory Results 03/20/17 05:44 03/22/17 04:47 03/21/17 03/22/17 03/23/17 05:59 05:59 05:59 Intake Total 700 450 Balance 700 450 PT 14.1 SEC (12.0-15.0) 03/19/17 16:25 INR 1.10 (0.83-1.16) 03/19/17 16:25 - Physical Exam Constitutional: no apparent distress Eyes: PERRL Ears, Nose, Mouth, Throat: moist mucous membranes Cardiovascular: regular rate and rhythym, no murmur, rub, or gallop Respiratory: no respiratory distress Gastrointestinal: normoactive bowel sounds Genitourinary: no bladder fullness Skin: warm Musculoskeletal: full muscle strength Neurologic: AAOx3, sensation intact bilaterally, CN II-XII Intact Psychiatric: interacting appropriately ICD10 Worksheet Patient Problems: Problems Problem Status Onset Altered mental state Acute Confused but orients easily Acute Intracranial hemorrhage Acute Seizure Acute Stroke Acute
--- NOTE | 2017-03-22 15:26 | GDS ---
[f rep st] DISCHARGE SUMMARY DISCHARGE DIAGNOSES: 1. Traumatic subarachnoid hemorrhage. 2. Generalized tonic-clonic seizure. 3. Hypothyroidism. 4. Fall. 5. Cognitive memory deficit. 6. Macrocytic anemia. 7. Hypokalemia. HISTORY OF PRESENT ILLNESS: The patient is an 86-year-old male, with history of depression, hypertension, Meniere disease and hypothyroidism, brought to the ER as a stroke alert after having a witnessed seizure. He was sitting outside with friends, and started having generalized jerking motions. Denies any history of seizure. Per EMS, he did appear to be postictal, where he was alert and oriented x1, and had frothy secretions around his mouth. Head CT in the emergency room showed left frontal acute traumatic subarachnoid hemorrhage with bilateral anterior inferior medial lobe acute hemorrhage. HOSPITAL COURSE BY PROBLEM: 1. Generalized tonic clonic seizure: The patient was evaluated by Neurology. Does recommend Keppra 500 mg twice a day. He is on no driving restriction for 3 months. Follow up with Dr. Rich in 1 month. He will have an outpatient EEG. 2. Traumatic subarachnoid hemorrhage: This is secondary to fall in the setting of seizure. The patient had a repeat CT head that showed stable bilateral anteroinferior frontal lobe hemorrhage. No anticoagulation. Aspirin was discontinued. 3. Hypothyroidism: Synthroid. 4. Cognitive memory deficits: Unclear chronicity of this, but acute hemorrhage is likely contributing. He is alert and oriented x3, but has short- term memory loss. Hope for recovery. 5. Disposition. Patient discharged to rehab. FOLLOW UP: 1. Dr. Rich in 1 month. 2. Stop aspirin. /[id number]/MODL MTDD
== END 2017-03-22 13:59 | DRG 86 ==
LOC: EDUNIT# → F2N 18:00 → F3N 03-20 14:32
PROVIDERS: ADMIT Family Medicine; ATTEND Family Medicine
DX: S06.6X0A Traumatic subarachnoid hemorrhage without loss of consciousness, initial encounter (principal); E87.2 Acidosis; G40.409 Other generalized epilepsy and epileptic syndromes, not intractable, without status epilepticus; E03.9 Hypothyroidism, unspecified; W19.XXXA Unspecified fall, initial encounter; D53.9 Nutritional anemia, unspecified; E87.6 Hypokalemia; F32.9 Major depressive disorder, single episode, unspecified; I10 Essential (primary) hypertension; H81.09 Meniere's disease, unspecified ear
CPT/HCPCS: 82607-90; 82947-QW; 92523-GN; 96374; 97116-GP; 97161-GP; 97165-GO; 97535-GO; G8978-GP-CJ; G8979-GP-CI; G8987-GO-CJ; G8988-GO-CI; G9168-GN-CK; G9169-GN-CK; J0360; J1953; J3490; Q9967

== ENCOUNTER 2018-05-25 14:42 | Emergency (ER) | payer OTHER ==
--- NOTE | 2018-05-25 15:12 | EDPHY ---
H & P Stated Complaint: up to br last night lost balance fell hitting hed and r shoulder - Personal History Current Tetanus Diphtheria and Acellular Pertussis (TDAP): Unsure Tetanus Vaccine Date: DONE AT [facility] - Medical/Surgical History Hx Asthma: No Hx Chronic Respiratory Disease: No Hx Diabetes: No Hx Cardiac Disease: No Hx Renal Disease: No Hx Cirrhosis: No Hx Alcoholism: No Hx HIV/AIDS: No Hx Splenectomy or Spleen Trauma: No Other PMH: PMH- HYPOTHYROID, DEPRESSION, LEVELOCK, LABILE BPH, ARTHRITIS, GLAUCOMA, - Social History Smoking Status: Light smoker Time Seen by Provider: 05/25/18 15:00 HPI/ROS: CHIEF COMPLAINT: Right shoulder pain and head injury post mechanical fall HISTORY OF PRESENT ILLNESS: 87-year-old male with no anticoagulant use arrives via private vehicle stating that at 3:00 a.m. Today when he was walking to the bathroom in his independent living facility at [facility], it was dark and he tripped and fell impacting the occiput of his head as well as his right shoulder. He is complaining of right shoulder pain. No headache. No nausea or vomiting. He was able to get himself up and go back to bed. There were no prolonged periods of immobility on the ground or on his bed. No alcohol or drug use. No midline C-spine pain. No thoracic or lumbar pain. No peripheral paresthesia, weakness, numbness. [facility] REVIEW OF SYSTEMS: 10 systems reviewed and negative with the exception of the elements mentioned in the history of present illness PAST MEDICAL/SURGICAL HISTORY: no anticoagulant use, SOCIAL HISTORY: denies alcohol use at time of incident. Lives independently at [facility] PHYSICAL EXAM 1) GENERAL: Well-developed, well-nourished, alert and oriented. Appears to be in no acute distress. Answering questions appropriately. 2) HEAD: Normocephalic, atraumatic, no hematoma, no depression, no laceration or abrasion. 3) HEENT: Pupils equal, round, reactive to light bilaterally. Negative Horners. Nasopharynx, oropharynx, clear. No deformity or angulation of nose. No septal hematoma. No rhinorrhea. No oral trauma. Ears bilaterally with normal tympanic membranes. No hemotympanum. No fluid or blood in the external auditory canal. No raccoon eyes. No Pratt sign. Teeth are normally aligned with no gross malocclusion, TMJ bilaterally nontender, facial bones nontender including the zygomatic arch, maxilla mandible. 4) NECK: No cervical collar is on. Posterior cervical spine is nontender, no stepoff, no effusion. Full range of motion which does not elicit any midline cervical spine pain, no posterior midline tenderness, no step-off. 5) LUNGS: Clear to auscultation bilaterally, no wheezes, no rhonchi, no retractions. No obvious signs of trauma. No chest wall pain. No flaring, no grunting. Moving symmetrically. No crepitus. 6) HEART: [Regular rate and rhythm, 7) ABDOMEN: No guarding, no rebound, no focal tenderness, no peritoneal signs, no signs of trauma, no ecchymosis 8) MUSCULOSKELETAL: Abrasion to the right scapula. Tender to palpation right anterior shoulder. No visible step-off or trauma otherwise. Humerus nontender. Elbow forearm wrist hand nontender. Bilateral lower extremities, hips are nontender with full pain-free range of motion on acetabulum. 9) BACK: No midline vertebral tenderness, no fluctuance, no step-off, no obvious trauma, no visual or palpable abnormality. 10) SKIN: No laceration. DIFFERENTIAL DIAGNOSIS: Not necessarily in any particular order, my differential diagnosis includes, but is not limited to, concussion, skull fracture, intraparenchymal contusion, subarachnoid, subdural and epidural hematoma. The patient understands that this diagnosis is provisional and can never be 100% accurate. (Lida Camp) Constitutional: Initial Vital Signs Temperature (C) 36.6 C 05/25/18 14:51 Heart Rate 66 05/25/18 14:51 Respiratory Rate 17 05/25/18 14:51 Blood Pressure 173/111 H 05/25/18 14:51 O2 Sat (%) 96 05/25/18 14:51 O2 Delivery Mode Room Air Allergies/Adverse Reactions: mold Allergy (Verified 05/29/18 14:11) Yeast Allergy (Verified 05/29/18 14:11) yeast, dried [yeast] Allergy (Verified 05/29/18 14:11) Home Medications: Medication Instructions Recorded Acetaminophen [Tylenol ES 500 mg 500 mg PO Q4 PRN 10/06/15 (*)] Cholecalciferol Vit D3 [Vitamin D3 1,000 units PO DAILY 10/06/15 (*)] Cyanocobalamin [Vitamin B12 (*)] 1,000 mcg PO DAILY 10/06/15 Latanoprost 0.005% [Xalatan 0.005% 1 drops EACHEYE HS 10/06/15 (*)] Levothyroxine [Synthroid 25 mcg 100 mcg PO DAILY06 #31 tab 10/06/15 (*)] Sertraline HCl [Zoloft 100mg (*)] 100 mg PO DAILY 10/06/15 amLODIPine BESYLATE [Norvasc 5 mg 5 mg PO DAILY tab 03/21/17 (*)] levETIRAcetam [Keppra 500 mg (*)] 500 mg PO BID tab 03/21/17 Medical Decision Making - Diagnostics Imaging Results: Images reviewed myself (Lida Camp) Procedures: Procedure: Splint An upper extremity sling was applied by ER cardiovascular technician. After application of the splint I returned and re-examined the patient. The splint was adequately immobilizing the joint and distal to the splint the patient's circulation and sensation were intact. Patient shows no signs of compartment syndrome. Was given orthopedic precautions. (iLda Camp) ED Course/Re-evaluation: 3:09 p.m.: Head CT ordered in this patient for trauma for the following indication: Greater than 65 years old. Also obtain x-ray of the right shoulder. Patient explains that this was not a syncopal episode and was a mechanical incident when he was walking in the dark 3:00 a.m. to go to the bathroom. There were no prolonged periods of immobility on the floor. Doubt rhabdomyolysis. 4:33 p.m.: CT head negative per radiologist interpretation. 4:35 p.m.: Re-evaluation. Patient smiling answering questions appropriately interactive. Discussed his imaging of his right shoulder shows no definitive osseous abnormality. Discussed limitations of x-ray in the diagnosis of shoulder injury. At this time I do not think that emergent MRI is indicated. Also discussed his negative CT of the head. He would like to be discharged. I have offered admission for observation however he states that he feels more comfortable and prefers to be discharged home. The renal case manager has spoke with the patient. I have provided him with my usual and customary head injury precautions and instructions. The patient does note that this was not a syncopal episode. I do not think that evaluation for syncope is indicated at this time therefore. If any point he develops complaints of pain or discomfort or any other concerns I recommend he seek immediate medical attention. He feels comfortable being discharged home. I saw this patient independently based on established practice protocols. Care of patient under supervision of secondary supervising physician Dr Mckeon . (Lida Camp) Other Provider: I did not see this patient. Secondary supervising physician is Dr. Mckeon. ( Karlene Crisostomo) Departure - Departure Disposition: Home, Routine, Self-Care Clinical Impression: Right anterior shoulder pain, Head injury due to trauma Condition: Good Instructions: Head Injury (ED), Shoulder Sprain (ED) Additional Instructions: ALTHOUGH THERE IS NO EVIDENCE OF SERIOUS HEAD INJURY AT THIS TIME, DELAYED SIGNS CAN APPEAR 24 TO 48 HOURS AFTER INJURY. PLEASE RETURN TO THE EMERGENCY DEPARTMENT (ED) IMMEDIATELY IF YOU HAVE INCREASED HEADACHE, PERSISTENT HEADACHE , VOMITING, WEAKNESS, CONFUSION OR VISUAL PROBLEMS. WE RECOMMEND THAT YOU DO NOT RESUME CONTACT SPORTS OR ACTIVITIES THAT TAKE COORDINATION OR BALANCE SUCH SKIING OR RIDING A BICYCLE UNTIL CLEARED TO DO SO BY YOUR DOCTOR OR BY A NEUROLOGIST. Return to the ER immediately if you experience discoloration, have worsening pain, numbness, tingling, or any other symptoms that concern you. If you received x-rays in the emergency department today, be advised, that ligamentous , tendon, muscular, and other non-bony injury cannot be fully ruled out. Try to keep your affected extremity elevated above the level of your chest, and keep cold packs on the affected area, for the next 48 hours. Referrals: Martha Crocker MD [Medical Doctor] - 2-3 days, call for appt. (Dr. Crocker is an orthopedic doctor) followup, at the [facility] in 2-3 days [Other] - As per Instructions
[2018-05-25 16:56] VITALS: BP 139/89
== END 2018-05-25 16:58 | disposition home or self-care (01) ==
DX: S09.90XA Unspecified injury of head, initial encounter (principal); M19.011 Primary osteoarthritis, right shoulder; W01.0XXA Fall on same level from slipping, tripping and stumbling without subsequent striking against object, initial encounter; Y92.193 Bedroom in other specified residential institution as the place of occurrence of the external cause
CPT/HCPCS: 70450; 73030; 99284; A4565

== ENCOUNTER 2018-05-29 14:04 | Emergency (ER) | payer OTHER ==
--- NOTE | 2018-05-29 15:31 | EDPHY ---
H & P Time Seen by Provider: 05/29/18 15:01 HPI/ROS: HPI Fell last night. 87-year-old male by private vehicle. This patient has a apartment [facility] assisted living facility. He lives alone. He had some friends over last night and states that he drank 5 glasses of wine. He lost his balance and fell backwards landing on his right posterior shoulder area and hitting the right side of his face. He did not lose consciousness. He presents to the emergency department with complaint of right shoulder pain. He denies neck pain. No loss of sensation or weakness in his extremities. He describes having a mild gradual onset headache. He has not had any nausea or vomiting. Denies any other extremity pain. He is not on anticoagulation or antiplatelet agents. ROS: Constitutional: No fever, no chills. No weakness. Eyes: No discharge. No changes in vision. ENT: No sore throat. No nasal congestion or rhinorrhea. Respiratory: No cough. No shortness of breath. Cardiac: No chest pain, no palpitations. Gastrointestinal: No abdominal pain, no vomiting, no diarrhea. Genitourinary: No hematuria. No dysuria or increased frequency with urination. Musculoskeletal: No back pain. No neck pain. As above. Skin: No rashes. Neurological: As above. No focal weakness or altered sensation. Past medical history: Hypothyroid, depression, hypertension, arthritis, glaucoma. Social history: Drinks alcohol socially. Smokes a pipe. Currently here by himself. As above. Physical Exam: General Appearance: Alert, no distress. This patient is responding to questions appropriately and in full sentences. This patient appears well- hydrated and well-nourished. Head: Normocephalic atraumatic except for some faint contusions involving the right maxilla and right lateral brow ridge. No bony step-off or deformity noted on palpation of this area.. Face: Facial bones are stable on palpation. Eyes: Pupils equal and round and reactive to light, no pallor or injection. No lid erythema or edema. ENT, Mouth: Mucous membranes moist. Dentition is intact. No malocclusion of the jaw. No tongue lacerations or abrasions. Pharynx is clear. The bilateral nasal canals are clear. No septal hematoma. Respiratory: There are no retractions, lungs are clear to auscultation with good air movement bilaterally. Chest wall is stable to AP and lateral palpation. Cardiovascular: Regular rate and rhythm. No murmur. Gastrointestinal: Abdomen is soft and nontender, no masses, bowel sounds normal. Neurological: Motor sensory function is intact. Cranial nerves are normal. Cerebellar function intact. Skin: Warm and dry, no rashes. He has a small nonsuturable skin tear on the dorsal aspect of the right ulnar wrist. He also has a small skin tear to dorsal distal left radial wrist. He has a superficial abrasion with associated contusion right posterior shoulder. He does have some discomfort with ranging of the right shoulder in flexion, extension and rotation. Musculoskeletal: Neck is supple and nontender. The trachea is midline. No midline cervical, thoracic, lumbar or sacral tenderness on palpation. No flank tenderness on palpation. Extremities are symmetrical, full range of motion except noted. All joints in the bilateral upper and bilateral lower extremities range without pain or impingement except noted. No tenderness on palpation of the long bones in the bilateral upper and bilateral lower extremities except noted. Psychiatric: No agitation. No depression. Database: EKG: Imaging: Right shoulder x-ray series: Possible small nondisplaced fracture of the acromion. Otherwise negative study. IV these films myself. Results discussed with staff radiologist Dr. Tim Nunez as well. CT without contrast head: No acute pathology. Results were discussed with staff radiologist Dr. Tim Nunez. Procedures: Emergency department course: Triage vital signs reviewed. He is mildly hypertensive. Vital signs are otherwise normal. From triage the patient was sent for right shoulder x-ray series. After my evaluation CT head without contrast obtained. Review of the patient's medical record indicate that he was just here on May 25 after he tripped and fell while going to the bathroom. He essentially had the same workup as he did today with no significant findings. 4:20 p.m., the patient was re-evaluated. Resting comfortably at this time. Repeat neurologic Assessment was nonfocal. Results of his x-rays and CT imaging discussed with him. He states that he does feel safe going back to his independent living apartment at [facility]. I explained that we were concerned because this was his 2nd fall within the last few days. We have engaged case management, Jennifer will see the patient, call [facility] and arrange for his living situation to be assessed for consideration to a higher level of care such as assisted living. Patient currently has a a home health care nurse as well as physical therapist visit him daily. The patient was in agreement with this plan. Otherwise he is requesting discharge. He is up and ambulatory without difficulty. Follow-up and return to emergency department precautions have been reviewed with him. All of his questions were answered. The patient was discharged in good condition. Differential Diagnosis: The differential diagnosis on this patient includes but is not limited to right shoulder contusion, right shoulder sprain. Fracture, subluxation, dislocation of the right shoulder, traumatic brain injury, skull fracture, facial fracture, cervical spine fracture, other significant traumatic injury unlikely. This represents a partial list of diagnoses considered. These considerations are based on history, physical exam, past history, reassessment and diagnostic testing. Smoking Status: Light smoker Constitutional: Initial Vital Signs Temperature (C) 36.6 C 05/29/18 14:11 Heart Rate 72 05/29/18 14:11 Respiratory Rate 18 05/29/18 14:11 Blood Pressure 144/93 H 05/29/18 14:11 O2 Sat (%) 92 05/29/18 14:11 O2 Delivery Mode Room Air Allergies/Adverse Reactions: mold Allergy (Verified 05/29/18 14:11) Yeast Allergy (Verified 05/29/18 14:11) yeast, dried [yeast] Allergy (Verified 05/29/18 14:11) Home Medications: Medication Instructions Recorded Acetaminophen [Tylenol ES 500 mg 500 mg PO Q4 PRN 10/06/15 (*)] Cholecalciferol Vit D3 [Vitamin D3 1,000 units PO DAILY 10/06/15 (*)] Cyanocobalamin [Vitamin B12 (*)] 1,000 mcg PO DAILY 10/06/15 Latanoprost 0.005% [Xalatan 0.005% 1 drops EACHEYE HS 10/06/15 (*)] Levothyroxine [Synthroid 25 mcg 100 mcg PO DAILY06 #31 tab 10/06/15 (*)] Sertraline HCl [Zoloft 100mg (*)] 100 mg PO DAILY 10/06/15 amLODIPine BESYLATE [Norvasc 5 mg 5 mg PO DAILY tab 03/21/17 (*)] levETIRAcetam [Keppra 500 mg (*)] 500 mg PO BID tab 03/21/17 Medical Decision Making - Diagnostics Imaging Results: Imaging Impressions Shoulder X-Ray 05/29/18 14:50 Impression: Equivocal nondisplaced fracture of the posterior acromion. Findings discussed with Ousmane López 05/29/2018 at 16:14. Head CT 05/29/18 15:26 Impression: 1. Stable moderate atrophy. 2. No hemorrhage, mass effect, or definite acute peripheral infarct. 3. Stable moderate nonspecific hypodensities in the white matter of bilateral cerebral hemispheres. Differential diagnosis includes microvascular ischemic disease, post-infectious/post-inflammatory sequela, atypical demyelinating disease, or migraine-related sequela. Small white matter lacunar infarcts may also have this appearance. 4. 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 If symptoms worsen, additional imaging may be necessary. Findings discussed with Ousmane López MD at 15:52 hour, 05/29/2018. Departure - Departure Disposition: [facility] Inpatient Acute Clinical Impression: Fall from ground level, Contusion of right shoulder region, Facial contusion, Head injury Condition: Good Instructions: Shoulder Sprain (ED), Fall Prevention (ED), Head Injury (ED) Additional Instructions: Read and follow provided instructions. Follow-up with your primary care physician in 1-2 days for re-evaluation. We have contacted the staff at [facility]. They will assess you're currently living situation and evaluate you for placement in assisted living. Take your medication as prescribed only. Do not drink alcohol. Return to the emergency department for worsening headache, nausea and vomiting, shoulder pain, fainting or other serious concerns. Referrals: NONE *PRIMARY CARE P,. [Primary Care Provider] - As per Instructions
[2018-05-29 16:56] VITALS: BP 169/100
--- NOTE | 2018-05-29 17:19 | ASDISCHSUM ---
Discharge Information Plan Status:Home with Home Health Medically Cleared to Leave: Discharge Date:05/29/2018 05:03 PM CM D/C Disposition:Home Health Service ADT D/C Disposition:FTHIP Projected Discharge Date:05/29/2018 05:03 PM Transportation at D/C:Cab Voucher Discharge Delay Reason: Follow-Up Date:05/29/2018 05:03 PM Discharge Slot: Final Diagnosis: Placement Information Patient Contact Information Contact Name:ANDRES Relationship:Graham Address: Work Phone: City:[place] Alternate Phone: State[place] Code:[place] Email: Financial Information Financial Class:Medicare Primary Plan Desc:MEDICARE OUTPATIENT Primary Plan Number:[id number] Secondary Plan Desc:[facility] Secondary Plan Number:[id number] Assessment Information [facility] CM Progress Note CM Note CM Note Notes: Pt presented to the ED via EMS from his Independent Living apt at [facility] ([phone]). Pt reportedly had a fall last night and hit his head and landed on his right shoulder. Pt was seen in the ED on 05/25/18 for the same reason; head CTs and right shoulder x-rays have been negative both visits. Spoke w/pt and he states he fell last night due to having a couple of friends over and he drank too much wine. Pt states he normally only drinks 1 glass of wine/day about 5 days/week. Pt feels this is not a usual occurrence. Pt is ready for discharge back home. Received a call from Jessica at [facility] and discussed patient's ED visit and discharge plan. Jessica states pt receives RN/PT/OT/SW/SENIOR BUSINESS MANAGER services through them and they will see make sure to visit patient tomorrow morning. Spoke w/Thiago ([phone]) Residential Duck Farmer at [facility] and she said she found the pt this morning and was concerned about his skin tears, head injury, intoxication, and being disoriented. Thiago spoke w/pt's son and discussed pt needing additional care and services. Thiago states she has been recommending the pt move into [facility] for more than a year now but patient is very resistant/ Thiago said she strongly encouraged pt's son to look into [facility] non-skilled services offered there at because they can charge in 15 min increments. Thiago also recommended pt consider enrolling in the [employer] program but is not sure pt would be eligible or able to afford it. Thiago will continue to encourage pt to move into [place]. [facility] and [facility] says she will continue to follow up w/the pt's PCP team about pt's recent falls and concerns for ETOH use. provided a cab voucher for pt to get home. Thiago brought the pt's walker down to the front desk monitor at and the cable installer will call the front desk monitor when he arrives so they can bring it out to the patient. CM available for further assistance if needed. Date Signed: 05/29/2018 05:16 PM Electronically Signed By:Jennifer Gaona RN Intervention Information Intervention Type:Cab Vouchers Date of Service:05/29/2018 05:17 PM Patient Type:Emergency Room Staff Member:CELENA Gaona [place] Hours:0.25 Discipline:Evaluator Severity: Comment: Intervention Type:Post Acute Communication Date of Service:05/29/2018 05:17 PM Patient Type:Emergency Room Staff Member:CELENA Gaona [place] Hours:0.75 Discipline:Evaluator Severity: Comment:
== END 2018-05-29 17:03 | disposition still patient (30) ==
DX: S40.011A Contusion of right shoulder, initial encounter (principal); S00.83XA Contusion of other part of head, initial encounter; I10 Essential (primary) hypertension; W19.XXXA Unspecified fall, initial encounter; Y92.099 Unspecified place in other non-institutional residence as the place of occurrence of the external cause; Y93.9 Activity, unspecified; Y99.9 Unspecified external cause status

== ENCOUNTER 2019-01-05 12:02 | Emergency (ER) | payer OTHER | END 2019-01-05 16:27 | disposition home or self-care (01) | DX: R40.4 Transient alteration of awareness (principal); N40.0 Benign prostatic hyperplasia without lower urinary tract symptoms ==